=== PATIENT | male | born 1995 | race American Indian/Alaskan Native ===

== ENCOUNTER 2021-01-04 18:58 | Emergency (ER) | payer SELFPAY ==
[2021-01-04 21:15] VITALS: BP 109/70
[2021-01-04 21:47] LABS: Bilirubin,Urine NEG (Negative); Blood,Urine NEG (Negative); Color,Urine Yellow (Yellow); Mucus,Urine 3+ /HPF
[2021-01-04 21:52] LABS: WBC,Urine > 182.0 /HPF (0.0-6.0)
== END 2021-01-04 23:30 | disposition left against medical advice (07) ==
LOC: EDSEX → ED 18:58
DX: R10.9 Unspecified abdominal pain (principal); R30.9 Painful micturition, unspecified; Z53.21 Procedure and treatment not carried out due to patient leaving prior to being seen by health care provider
CPT/HCPCS: 81001